=== PATIENT | male | born 1990 | race Asian ===

== ENCOUNTER 2017-01-31 04:46 | Emergency (ER) | payer OTHER ==
[~2017-01-31] VITALS: Ht 182.9 cm; Wt 85.2 kg
[2017-01-31 04:50] VITALS: TEMP 37.4; Ht 182.9 cm; Wt 85.2 kg
[2017-01-31] MEDS ORDERED: ACETAMINOPHEN 500 MG TAB PO STA (05:00)
--- NOTE | 2017-01-31 05:07 | EMERGENCY ROOM VISIT NOTE ---
History Report prepared by Diogenes: Eduar Scott Under the Supervision of: Dr. Nura Traylor D.O. First contact with patient: 04:55 Chief Complaint: FEVER Stated Complaint: FEVER,POWERLESS,DIZZY History of Present Illness The patient is a 26 year old male who presents to the Emergency Room with complaints of a persistent fever that began two days prior to this visit. The patient states that he first started to experience cold symptoms four days ago. He notes that he just returned back from a trip to [place] and was visiting with his mother who currently has the flue. He also complains of experiencing a cough , headache, and weakness. He was started on an Azithromycin pack four days ago in [place]. 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 A total of ten systems were reviewed and were otherwise negative. Past Medical & Surgical Patient denies past medical/surgical history Family History Diabetes mellitus FH: cancer FH: heart disease Hypertension Social History Smoking Status: Never Smoker Marital Status: single Housing Status: lives with roommate Occupation Status: student Current/Historical Medications Scheduled PRN Dextromethorphan-Phenylephrine (Day Time Cold/Flu Relief), 1 DOSE PO UD PRN for COLD SX Uzrcgyfezjjii-Eqqpdhuguf-Nuewp (Nyquil Severe Cold/Flu 5-6.25-10-325 mg/15Ml), 1 DOSE PO UD PRN for COLD SX Allergies Coded Allergies: No Known Allergies (Unverified , 01/31/17) Physical Exam Vital Signs Date Time Temp Pulse Resp B/P (MAP) Pulse Ox O2 Delivery O2 Flow Rate FiO2 01/31/17 04:50 37.4 120 18 135/87 95 Room Air Physical Exam GENERAL: Awake, alert, well-appearing, in no distress HENT: Normocephalic, atraumatic. Oropharynx unremarkable. EYES: Normal conjunctiva. Sclera non-icteric. NECK: Supple. No nuchal rigidity. FROM. No JVD. RESPIRATORY: Clear to auscultation. CARDIAC: Regular rate, normal rhythm. Extremities warm and well perfused. Pulses equal. ABDOMEN: Soft, non-distended. No tenderness to palpation. No rebound or guarding. No masses. RECTAL: Deferred. MUSCULOSKELETAL: Chest examination reveals no tenderness. The back is symmetrical on inspection without obvious abnormality. There is no CVA tenderness to palpation. No joint edema. LOWER EXTREMITIES: Calves are equal size bilaterally and non-tender. No edema. No discoloration. NEURO: Normal sensorium. No sensory or motor deficits noted. SKIN: No rash or jaundice noted. Medical Decision & Procedures ER Provider Diagnostic Interpretation: X ray results as stated below per my interpretation: CHEST X-RAY: Chest X-ray is negative and unchanged from 2013. Laboratory Results Test 01/31/17 00:00 Influenza Type A Antigen POS for Influ A (NEG) Influenza Type B Antigen Neg for Influ B (NEG) Laboratory results reviewed by me Medications Administered Medications (Trade) Dose Ordered Sig/[place] Route Start Time Stop Time Status Last Admin Dose Admin Acetaminophen (Tylenol Tab) 1,000 mg NOW STAT PO 01/31/17 05:00 01/31/17 05:01 DC 01/31/17 05:00 1,000 MG ED Course 0457: The patient was evaluated in room A10. A complete history and physical exam was performed. 0500: Ordered Acetaminophen 1000 mg PO. 0547: Ordered Tamiflu Cap 75 mg PO. 0549: I reevaluated the patient. Discussed results and discharge instructions: He verbalized understanding and agreement. The patient is ready for discharge. Discussed eval; currently not a student; will treat; told to stay away from people; wear mask; will treat with tamiflu Medical Decision Differential Diagnosis includes; bronchitis, UTI, pneumonia, influenza. Medication Reconcilliation Current Medication List: was personally reviewed by me Blood Pressure Screening Patient's blood pressure: Elevated blood pressure Blood pressure disposition: Elevated BP felt to be situational Impression Primary Impression: Influenza A Scribe Attestation The scribe's documentation has been prepared under my direction and personally reviewed by me in its entirety. I confirm that the note above accurately reflects all work, treatment, procedures, and medical decision making performed by me. Departure Information Dispostion Home / Self-Care Prescriptions Oseltamivir (Tamiflu) 75 Mg Cap 75 MG PO BID for 5 Days, #10 CAP Prov: Nura Traylor, DO 01/31/17 Referrals No Doctor, Assigned (PCP) Patient Instructions Flu, My [facility]
[2017-01-31] MEDS ORDERED: PHEN-905 PO (05:11)
[2017-01-31] MEDS ORDERED: DEXT-119 PO (05:11)
[2017-01-31] MEDS ORDERED: OSELTAMIVIR PHOSPHATE 75 MG CAP PO STA (05:47)
[2017-01-31] MEDS ORDERED: OSEL75CA12 PO (05:57)
[2017-01-31 06:06] VITALS: BP 128/71; PULSE 101; O2SAT 96
--- NOTE | 2017-01-31 07:24 | DIAGNOSTIC IMAGING REPORT ---
CHEST ONE VIEW PORTABLE CLINICAL HISTORY: 26 years-old Male presenting with cough, fever. TECHNIQUE: Portable upright AP view of the chest was obtained. COMPARISON: 03/15/2014. FINDINGS: Ovoid radiodensity projects over the aortopulmonary window likely in the anterior mediastinum. This measures 5.7 cm. Adjacent circular 6 mm radiodense circular lesion immediately superior to this. Cardiomediastinal silhouette normal. Lungs and pleural spaces clear. Osseous structures and upper abdomen normal. IMPRESSION: 1. Two adjacent dense ovoid/circular lesions possibly in the anterior mediastinum. Given their density, these may be calcified. Further evaluation with CT is recommended. The report will be called/faxed according to standard departmental protocol. Electronically signed by: Gabriele Hurd M.D. 01/31/2017 7:22 AM Dictated Date/Time: 01/31/2017 7:19 AM
== END 2017-01-31 06:07 | disposition home or self-care (01) ==
LOC: C.EDB 04:48 → C.EDA 06:07
DX: J09.X2 Influenza due to identified novel influenza A virus with other respiratory manifestations (principal); R50.9 Fever, unspecified; R42 Dizziness and giddiness